=== PATIENT | female | born 1960 | race Caucasian/White ===

== ENCOUNTER 2017-04-13 14:08 | Emergency (ER) | payer MEDICAID ==
[~2017-04-13] VITALS: Ht 5367.7 cm; Wt 81.8 kg
[~2017-04-13 14:08] MED LIST: CHOL400T14 PO; HYDR-569 PO
[2017-04-13] MEDS ORDERED: DOXY-200 PO (16:54)
[2017-04-13] MEDS ORDERED: CEPH-572 PO (16:54)
[2017-04-13 17:23] VITALS: BP 139/100
== END 2017-04-13 17:26 | disposition home or self-care (01) ==
LOC: ER 14:09
DX: N61.0 Mastitis without abscess (principal); A49.02 Methicillin resistant Staphylococcus aureus infection, unspecified site; I10 Essential (primary) hypertension; E11.9 Type 2 diabetes mellitus without complications; M06.9 Rheumatoid arthritis, unspecified; Z90.49 Acquired absence of other specified parts of digestive tract; Z98.890 Other specified postprocedural states; Z98.51 Tubal ligation status; Z88.5 Allergy status to narcotic agent; Z88.6 Allergy status to analgesic agent; Z79.899 Other long term (current) drug therapy
CPT/HCPCS: 99283

== ENCOUNTER 2017-06-08 16:37 | Emergency (ER) | payer MEDICAID ==
[~2017-06-08] VITALS: Ht 162.6 cm; Wt 80.1 kg
[2017-06-08] MEDS ORDERED: diazepam 5mg tablet PO ONE (17:50)
[2017-06-08] MEDS ORDERED: METH-360 PO (17:51)
[2017-06-08 18:21] VITALS: BP 165/91
== END 2017-06-08 18:22 | disposition home or self-care (01) ==
LOC: ER 16:38
DX: M25.511 Pain in right shoulder (principal); I10 Essential (primary) hypertension; E11.9 Type 2 diabetes mellitus without complications; M06.9 Rheumatoid arthritis, unspecified; Z86.14 Personal history of Methicillin resistant Staphylococcus aureus infection; Z90.49 Acquired absence of other specified parts of digestive tract; Z98.890 Other specified postprocedural states; Z88.5 Allergy status to narcotic agent; Z88.8 Allergy status to other drugs, medicaments and biological substances; Z79.899 Other long term (current) drug therapy
CPT/HCPCS: 99283; L3650

== ENCOUNTER 2017-11-27 06:47 | Inpatient (IN) | payer MEDICAID ==
[2017-11-26 15:17] LABS: BASOPHILS # (AUTO) 0.1 X10'3 (0-0.2); BASOPHILS % (AUTO) 0.7 % (0-1); EOSINOPHILS # (AUTO) 0.1 X10'3 (0-0.9); EOSINOPHILS % (AUTO) 1.6 % (0-6); LYMPHOCYTES % (AUTO) 36.7 % (21-51); MEAN CORPUSCULAR HEMOGLOBIN 28.7 PG (27.0-31.0); MEAN CORPUSCULAR HGB CONC 33.4 % (33.0-36.5); MEAN PLATELET VOLUME 8.7 FL (7.4-10.4); MONOCYTES # (AUTO) 0.5 X10'3 (0-0.9); MONOCYTES % (AUTO) 5.6 % (2-12); NEUTROPHILS # (AUTO) 4.4 X10'3 (1.8-7.7); NEUTROPHILS % (AUTO) 55.4 % (42-75); PRE OP HEMATOCRIT 43.7 % (35.0-45.0); PRE OP HEMOGLOBIN 14.6 g/dL (12.0-16.0); PRE OP PLATELET COUNT 234 X10'3 (140-440); RED BLOOD COUNT 5.08 X10'6 (4.20-5.60); RED CELL DISTRIBUTION WIDTH 11.8 % (11.5-14.5)
[2017-11-26 15:25] LABS: PRE OP PROTIME 10.4 SECONDS (9.0-12.0)
[2017-11-26 15:30] LABS: ALBUMIN 3.9 G/DL (3.4-5.0); ALBUMIN/GLOBULIN RATIO 0.9 (1.1-1.5); ALKALINE PHOSPHATASE 113 IU/L (46-116); BLOOD UREA NITROGEN 13 MG/DL (7-18); BUN/CREATININE RATIO 21.3 (6.6-38.0); CALCIUM 9.9 MG/DL (8.5-10.1); CHLORIDE 102 MMOL/L (99-107); CREATININE 0.61 MG/DL (0.40-0.90); PRE OP ANION GAP 4 (8-16); PRE OP AST 70 U/L (10-37); PRE OP BILIRUB, TOTAL 0.5 MG/DL (0.0-1.0); PRE OP GLUCOSE 73 MG/DL (70-104); PRE OP POTASSIUM 4.1 MMOL/L (3.4-5.1); PRE OP SODIUM 137 MMOL/L (135-145); TOTAL CARBON DIOXIDE 31.4 MMOL/L (24-32); TOTAL PROTEIN 8.3 G/DL (6.4-8.2); eGFR > 90 ML/MIN
[2017-11-26 15:33] LABS: PRE OP ALT 93 U/L (30-65)
[2017-11-26 16:15] LABS: HEMOGLOBIN A1C 7.4 % (4.5-6.2)
[2017-11-27] VITALS (19 sets, daily range): BP systolic 104–157; BP diastolic 48–89
[~2017-11-27] VITALS: Ht 162.6 cm; Wt 78.9 kg
[~2017-11-27 06:47] MED LIST changes: -CHOL400T14 PO; +Cefazolin 2GM/50ML dext iso,osmotic IVPB IV ONE; +DOCUMENT DATE & TIME OF BETA-BLOCKER PO ONE; +GLYB5TAB7 PO; +HYDR-565 PO; -HYDR-569 PO; +METO-539 PO; +famotidine 20mg tablet PO ONE; +ringers solution, lacted 1,000 ML IV SCH; +vancomycin inj 1,500 MG in normal saline 300ml IV soln IV ONE
[2017-11-27] MEDS ORDERED: LIDOcaine 1% (10mg/ml) 2ml vial ONE (07:20)
[2017-11-27] MEDS ORDERED: ROPIVAcaine 0.5% (5mg/ml) 30ml vial ONE ×2 (09:03→09:52)
[2017-11-27] MEDS ORDERED: ketorolac trometh. 30mg/ml inj. ONE (09:52)
[2017-11-27] MEDS ORDERED: vancomycin 1,000mg inj ONE (09:52)
[2017-11-27] MEDS ORDERED: NORMAL SALINE IV ONE ×3 (09:55→16:00)
[2017-11-27] MEDS ORDERED: TRANEXAMIC ACID IV ONE ×3 (09:55→16:00)
[2017-11-27] MEDS ORDERED: sevoflurane 250ml liquid IH ONE (11:00)
[2017-11-27] MEDS ORDERED: ondansetron/PF 4mg/2ml inj ONE (11:00)
[2017-11-27] MEDS ORDERED: morphine 10mg/ml inj. ONE (11:14)
[2017-11-27] MEDS ORDERED: midazolam 2 mg/2 ml injection ONE (11:14)
[2017-11-27] MEDS ORDERED: dexamethasone sod phosphate 4mg/ml inj. ONE (11:16)
[2017-11-27] MEDS ORDERED: LIDOcaine 2% (20mg/ml) 5ml vial ONE (11:16)
[2017-11-27] MEDS ORDERED: propofol inj 20 ML IV ONE (11:16)
[2017-11-27] MEDS ORDERED: ringers solution, lacted 1,000 ML IV SCH (11:38)
[2017-11-27] MEDS ORDERED: meperidine/PF 25mg/ml syringe IV PRN ×2 (11:40)
[2017-11-27] MEDS ORDERED: enalaprilat dihydrate 2.5mg/2ml vial IV PRN (11:40)
[2017-11-27] MEDS ORDERED: hydrALAZINE 20mg/ml inj. IV PRN (11:40)
[2017-11-27] MEDS ORDERED: ondansetron/PF 4mg/2ml inj IV PRN ×2 (11:40→13:05)
[2017-11-27] MEDS ORDERED: morphine 4 MG/ML inj SYRINge IV PRN ×2 (11:40)
[2017-11-27] MEDS ORDERED: acetaminophen 325mg tablet PO PRN (13:05)
[2017-11-27] MEDS ORDERED: HYDROmorphone inj. 0.5 MG/0.5 ML DISP.SYRIN IV PRN ×2 (13:05)
[2017-11-27] MEDS ORDERED: oxyCODONE IR 5mg (immed. release) tablet PO PRN (13:05)
[2017-11-27] MEDS ORDERED: bisacodyl 10mg suppository rectal RC PRN (13:05)
[2017-11-27] MEDS ORDERED: diphenhydrAMINE 25mg capsule PO PRN ×2 (13:05)
[2017-11-27] MEDS ORDERED: magnesium hydroxide 30ml (MOM) UD suspension PO PRN (13:05)
[2017-11-27] MEDS: acetaminophen 325mg tablet PO SCH ×2 (14:00→20:20)
[2017-11-27] MEDS ORDERED: ketorolac tromethamine 15mg/ml inj. IV SCH (14:00)
[2017-11-27] MEDS ORDERED: ceFAZolin 1GM/D5W- ADD-VANTAGE 50 ML IV SCH (16:00)
[2017-11-27] MEDS: potassium cl 20mEq in 1/2 NS 1,000 ML IV SCH ×2 (16:25→23:02)
[2017-11-27] MEDS: ceFAZolin 1GM/D5W- ADD-VANTAGE 50 ML IV SCH (19:21)
[2017-11-27] MEDS: oxyCODONE IR 5mg (immed. release) tablet PO PRN (19:28)
[2017-11-27] MEDS ORDERED: vancomycin/NS 1 GM ADD-VANTAGE 250 ML IV SCH (20:00)
[2017-11-27] MEDS: gabapentin 300mg capsule PO SCH (20:20)
[2017-11-27] MEDS: sennosides 8.6mg tablet PO SCH (20:20)
[2017-11-28] MEDS: oxyCODONE IR 5mg (immed. release) tablet PO PRN ×2 (00:17→04:38)
[2017-11-28 02:00] VITALS: BP 123/61
[2017-11-28] MEDS: ceFAZolin 1GM/D5W- ADD-VANTAGE 50 ML IV SCH (02:04)
[2017-11-28] MEDS: acetaminophen 325mg tablet PO SCH ×4 (02:08→20:00)
[2017-11-28] MEDS: potassium cl 20mEq in 1/2 NS 1,000 ML IV SCH ×3 (05:01→21:01)
[2017-11-28 06:00] VITALS: BP 170/84
[2017-11-28 06:16] LABS: ANION GAP 9 (8-16); CHLORIDE 102 MMOL/L (99-107); POTASSIUM 4.1 MMOL/L (3.5-5.1); SODIUM 137 MMOL/L (135-145); TOTAL CARBON DIOXIDE 26.4 MMOL/L (24-32)
[2017-11-28 06:18] LABS: BASOPHILS % (AUTO) 0.2 % (0-1); EOSINOPHILS # (AUTO) 0.1 X10'3 (0-0.9); EOSINOPHILS % (AUTO) 0.9 % (0-6); HEMATOCRIT 34.2 % (35.0-45.0); HEMOGLOBIN 11.7 g/dl (12.0-16.0); LYMPHOCYTES # (AUTO) 1.5 X10'3 (1.1-4.8); LYMPHOCYTES % (AUTO) 12.1 % (21-51); MEAN CORPUSCULAR HEMOGLOBIN 29.5 PG (27.0-31.0); MEAN CORPUSCULAR HGB CONC 34.2 % (33.0-36.5); MEAN CORPUSCULAR VOLUME 86.2 FL (78-98); MEAN PLATELET VOLUME 8.9 FL (7.4-10.4); MONOCYTES # (AUTO) 0.4 X10'3 (0-0.9); MONOCYTES % (AUTO) 3.4 % (2-12); NEUTROPHILS # (AUTO) 10.1 X10'3 (1.8-7.7); NEUTROPHILS % (AUTO) 83.4 % (42-75); PLATELET COUNT 177 X10'3 (140-440); RED BLOOD COUNT 3.97 X10'6 (4.20-5.60); RED CELL DISTRIBUTION WIDTH 12.5 % (11.5-14.5); WHITE BLOOD COUNT 12.1 X10'3 (4.5-11.0)
[2017-11-28] MEDS: glimepiride 1 MG tablet PO SCH (07:46)
[2017-11-28] MEDS: gabapentin 300mg capsule PO SCH ×3 (07:47→20:31)
[2017-11-28] MEDS: metoprolol succinate 25mg (24-HOUR) SR. Tablet PO SCH (07:48)
[2017-11-28] MEDS: aspirin 325mg tablet PO SCH (07:48)
[2017-11-28] MEDS ORDERED: HYDROmorphone 1 mg/ml syringe IV PRN (08:45)
[2017-11-28] MEDS: HYDROmorphone 1 mg/ml syringe IV PRN ×3 (09:53→21:57)
[2017-11-28 10:00] VITALS: BP 112/57
[2017-11-28] MEDS: oxyCODONE/APAP 10/325mg tablet PO PRN ×3 (12:33→20:31)
[2017-11-28 14:00] VITALS: BP 142/58
[2017-11-28 18:01] VITALS: BP 130/77
[2017-11-28] MEDS: celeCOXIB 100mg capsule PO SCH (20:00)
[2017-11-28] MEDS: sennosides 8.6mg tablet PO SCH (20:31)
[2017-11-28 22:00] VITALS: BP 111/49
[2017-11-29] MEDS: oxyCODONE/APAP 10/325mg tablet PO PRN (00:41)
[2017-11-29] MEDS: HYDROmorphone 1 mg/ml syringe IV PRN (03:49)
[2017-11-29 05:00] VITALS: BP 130/55
[2017-11-29] MEDS: potassium cl 20mEq in 1/2 NS 1,000 ML IV SCH (05:01)
[2017-11-29 06:13] LABS: BASOPHILS # (AUTO) 0.1 X10'3 (0-0.2); BASOPHILS % (AUTO) 0.5 % (0-1); EOSINOPHILS # (AUTO) 0.2 X10'3 (0-0.9); EOSINOPHILS % (AUTO) 1.4 % (0-6); HEMATOCRIT 32.9 % (35.0-45.0); HEMOGLOBIN 11.1 g/dl (12.0-16.0); LYMPHOCYTES # (AUTO) 3.6 X10'3 (1.1-4.8); LYMPHOCYTES % (AUTO) 27.1 % (21-51); MEAN CORPUSCULAR HEMOGLOBIN 29.5 PG (27.0-31.0); MEAN CORPUSCULAR HGB CONC 33.8 % (33.0-36.5); MEAN CORPUSCULAR VOLUME 87.2 FL (78-98); MEAN PLATELET VOLUME 8.7 FL (7.4-10.4); MONOCYTES # (AUTO) 0.8 X10'3 (0-0.9); NEUTROPHILS # (AUTO) 8.6 X10'3 (1.8-7.7); PLATELET COUNT 182 X10'3 (140-440); RED BLOOD COUNT 3.77 X10'6 (4.20-5.60); RED CELL DISTRIBUTION WIDTH 12.7 % (11.5-14.5); WHITE BLOOD COUNT 13.2 X10'3 (4.5-11.0)
[2017-11-29] MEDS ORDERED: PER10325T PO (06:33)
[2017-11-29] MEDS ORDERED: ASPI-1 PO (06:33)
[2017-11-29] MEDS: celeCOXIB 100mg capsule PO SCH (07:50)
[2017-11-29] MEDS: gabapentin 300mg capsule PO SCH (07:50)
[2017-11-29] MEDS: glimepiride 1 MG tablet PO SCH (07:50)
[2017-11-29] MEDS: aspirin 325mg tablet PO SCH (07:51)
[2017-11-29] MEDS: metoprolol succinate 25mg (24-HOUR) SR. Tablet PO SCH (08:00)
[2017-11-29] MEDS ORDERED: OXYC-658 PO (08:02)
[2017-11-29] MEDS ORDERED: oxyCODONE IR 5mg (immed. release) tablet PO PRN ×3 (08:05→09:00)
[2017-11-29 10:00] VITALS: BP 141/100
[2017-11-29] MEDS ORDERED: acetaminophen 325mg tablet PO PRN (13:05)
== END 2017-11-29 10:50 | disposition home or self-care (01) | DRG 322 ==
LOC: PAS IN 06:47 → EDSTATUS 10:00 → ORTHO 4S 14:15
PROVIDERS: ADMIT Orthopaedic Surgery; ATTEND Orthopaedic Surgery
PROC: 0LS30ZZ Reposition Right Upper Arm Tendon, Open Approach (ICD-10-PCS; 2017-11-27)
PROC: 0RRJ0JZ Replacement of Right Shoulder Joint with Synthetic Substitute, Open Approach (ICD-10-PCS; principal; 2017-11-27 10:45)
DX: M19.011 Primary osteoarthritis, right shoulder (principal); D62 Acute posthemorrhagic anemia; E11.9 Type 2 diabetes mellitus without complications; G89.29 Other chronic pain; M65.811 Other synovitis and tenosynovitis, right shoulder; I25.10 Atherosclerotic heart disease of native coronary artery without angina pectoris; I25.2 Old myocardial infarction; Z86.718 Personal history of other venous thrombosis and embolism; Z91.030 Bee allergy status; Z88.5 Allergy status to narcotic agent; Z88.8 Allergy status to other drugs, medicaments and biological substances
CPT/HCPCS: 36415; 80051; 80053; 82948; 83036; 85025; 85610; 85730; 87070; 97110; 97116; 97161; A4565; A6209; A7000; C1713; C1776; J0690; J1100; J1170; J1885; J2001; J2250; J2270; J2405; J2704; J2795; J3370; J3490; J7030; J7040; J7120

== ENCOUNTER 2018-07-10 10:37 | Emergency (ER) | payer MEDICAID ==
[~2018-07-10] VITALS: Ht 162.6 cm; Wt 79.5 kg
[~2018-07-10 10:37] MED LIST changes: -Cefazolin 2GM/50ML dext iso,osmotic IVPB IV ONE; -DOCUMENT DATE & TIME OF BETA-BLOCKER PO ONE; +DOXY-224 PO; +HYDR-4353 PO; -HYDR-565 PO; +LACT1CAP26 PO; +OXYC5CAP19 PO; -famotidine 20mg tablet PO ONE; -ringers solution, lacted 1,000 ML IV SCH; -vancomycin inj 1,500 MG in normal saline 300ml IV soln IV ONE
[2018-07-10 11:18] LABS: BASOPHILS # (AUTO) 0.1 X10'3 (0-0.2); BASOPHILS % (AUTO) 1.2 % (0-1); EOSINOPHILS # (AUTO) 0.3 X10'3 (0-0.9); EOSINOPHILS % (AUTO) 4.2 % (0-6); HEMATOCRIT 40.9 % (35.0-45.0); LYMPHOCYTES # (AUTO) 2.8 X10'3 (1.1-4.8); LYMPHOCYTES % (AUTO) 38.7 % (21-51); MEAN CORPUSCULAR HEMOGLOBIN 28.3 PG (27.0-31.0); MEAN CORPUSCULAR HGB CONC 34.3 g/dL (33.0-36.5); MEAN CORPUSCULAR VOLUME 82.6 FL (78-98); MEAN PLATELET VOLUME 8.6 FL (7.4-10.4); MONOCYTES # (AUTO) 0.6 X10'3 (0-0.9); MONOCYTES % (AUTO) 8.1 % (2-12); NEUTROPHILS # (AUTO) 3.5 X10'3 (1.8-7.7); NEUTROPHILS % (AUTO) 47.8 % (42-75); PLATELET COUNT 212 X10'3 (140-440); RED BLOOD COUNT 4.95 X10'6 (4.20-5.60); RED CELL DISTRIBUTION WIDTH 12.8 % (11.5-14.5); WHITE BLOOD COUNT 7.3 X10'3 (4.5-11.0)
[2018-07-10 11:22] LABS: CLARITY,URINE CLOUDY (Clear); COLOR,URINE YELLOW (Yellow); GLUCOSE, URINE NEGATIVE (Neg); KETONES,URINE TRACE mg/dl (Neg); LEUKOCYTE ESTERASE ,URINE TRACE (Neg); NITRITES, URINE NEGATIVE (Neg); OCCULT BLOOD,URINE NEGATIVE (Neg); PROTEIN,URINE TRACE mg/dl (Neg); UROBILINOGEN,URINE 0.2 E.U/dL (0.2-1.0)
[2018-07-10 11:25] LABS: PROTHROMBIN TIME 10.1 SECONDS (9.0-12.0)
[2018-07-10 11:36] LABS: ALANINE AMINOTRANSFERASE 59 U/L (12-78); ALBUMIN 3.8 G/DL (3.4-5.0); ALBUMIN/GLOBULIN RATIO 0.9 (1.1-1.5); ALKALINE PHOSPHATASE 120 IU/L (46-116); ANION GAP 8 (8-16); ASPARTATE AMINO TRANSFERASE 48 U/L (10-37); BILIRUBIN,TOTAL 0.4 MG/DL (0.1-1.0); BLOOD UREA NITROGEN 11 MG/DL (7-18); BUN/CREATININE RATIO 15.5 (6.6-38.0); CALCIUM 9.7 MG/DL (8.5-10.1); CHLORIDE 106 MMOL/L (99-107); CREATININE 0.71 MG/DL (0.40-0.90); GLUCOSE 134 MG/DL (70-104); POTASSIUM 4.1 MMOL/L (3.5-5.1); SODIUM 142 MMOL/L (135-145); TOTAL CARBON DIOXIDE 27.8 MMOL/L (24-32); eGFR 85 ML/MIN
[2018-07-10 11:52] LABS: UA COLLECTION TYPE CLN CATCH MIDSTREAM
[2018-07-10 11:56] LABS: BACTERIA,URINE 2+ /HPF (Neg); MUCUS STRANDS FEW /LPF (Neg); RBC,URINE 0-2 /HPF (0-2); SQUAMOUS EPITHELIAL CELL,UR MANY /LPF (FEW)
[2018-07-10 11:58] LABS: TRANSITIONAL EPI CELLS,URINE FEW /HPF
[2018-07-10 11:59] LABS: HYALINE CASTS 0-3 /LPF (NEGATIVE)
[2018-07-10] MEDS ORDERED: morphine 4 MG/ML inj SYRINge IV ONE (12:20)
[2018-07-10] MEDS ORDERED: normal saline 1000ML IV soln IVB ONE (12:20)
[2018-07-10] MEDS ORDERED: ondansetron/PF 4mg/2ml inj IV ONE (12:20)
--- NOTE | 2018-07-10 13:12 | NUR ---
ASSISTING RN WITH PT CARE, STARTED IV ON 1ST ATTEMPT TO LEFT AC, 1ST LITER NS INFUSING W/O
[2018-07-10 14:03] VITALS: BP 126/53
[2018-07-10] MEDS ORDERED: SULF1TAB49 PO (14:22)
[2018-07-10] MEDS ORDERED: HYDROcodone/acetaminophen 10/325mg tab PO ONE (14:30)
== END 2018-07-10 14:48 | disposition home or self-care (01) ==
LOC: ER 10:38
DX: N39.0 Urinary tract infection, site not specified (principal); I10 Essential (primary) hypertension; I25.10 Atherosclerotic heart disease of native coronary artery without angina pectoris; I25.2 Old myocardial infarction; E11.9 Type 2 diabetes mellitus without complications; M19.90 Unspecified osteoarthritis, unspecified site; Z90.49 Acquired absence of other specified parts of digestive tract; Z98.51 Tubal ligation status; Z88.6 Allergy status to analgesic agent; Z88.8 Allergy status to other drugs, medicaments and biological substances
CPT/HCPCS: 36415; 74176; 80053; 81001; 85025; 85610; 96361; 96374; 96375; 99284; J2270; J2405; J7030

== ENCOUNTER 2018-08-12 09:48 | Inpatient (IN) | payer MEDICAID ==
[~2018-08-12] VITALS: Ht 162.6 cm; Wt 77.3 kg
[2018-08-12] MEDS ORDERED: metoprolol tartrate 1mg/ml inj IV ONE (10:00)
[2018-08-12] MEDS ORDERED: ondansetron/PF 4mg/2ml inj IV ONE (10:00)
[2018-08-12] MEDS ORDERED: normal saline 1000ML IV soln IVB ONE (10:00)
[2018-08-12] MEDS ORDERED: morphine 4 MG/ML inj SYRINge IV PRN (10:00)
[2018-08-12] MEDS ORDERED: aspirin 81mg tab.chew PO ONE (10:00)
[2018-08-12] MEDS: nitroGLYCERIN 0.4mg SUBLingual tab SL PRN (10:33)
--- NOTE | 2018-08-12 10:33 | NUR ---
Pt states no change in pain level with nitro administration, complains of headache.
[2018-08-12 11:00] LABS: BASOPHILS # (AUTO) 0.1 X10'3 (0-0.2); BASOPHILS % (AUTO) 0.8 % (0-1); EOSINOPHILS # (AUTO) 0.3 X10'3 (0-0.9); EOSINOPHILS % (AUTO) 3.4 % (0-6); HEMATOCRIT 37.2 % (35.0-45.0); HEMOGLOBIN 12.5 g/dl (12.0-16.0); LYMPHOCYTES # (AUTO) 3.2 X10'3 (1.1-4.8); LYMPHOCYTES % (AUTO) 40.3 % (21-51); MEAN CORPUSCULAR HEMOGLOBIN 27.9 PG (27.0-31.0); MEAN CORPUSCULAR HGB CONC 33.6 g/dL (33.0-36.5); MEAN CORPUSCULAR VOLUME 82.8 FL (78-98); MEAN PLATELET VOLUME 8.4 FL (7.4-10.4); MONOCYTES # (AUTO) 0.6 X10'3 (0-0.9); MONOCYTES % (AUTO) 7.2 % (2-12); NEUTROPHILS # (AUTO) 3.9 X10'3 (1.8-7.7); NEUTROPHILS % (AUTO) 48.3 % (42-75); PLATELET COUNT 195 X10'3 (140-440); RED BLOOD COUNT 4.49 X10'6 (4.20-5.60); RED CELL DISTRIBUTION WIDTH 13.1 % (11.5-14.5); WHITE BLOOD COUNT 8.1 X10'3 (4.5-11.0)
[2018-08-12 11:12] LABS: ALANINE AMINOTRANSFERASE 57 U/L (12-78); ALBUMIN 3.4 G/DL (3.4-5.0); ALBUMIN/GLOBULIN RATIO 0.9 (1.1-1.5); ALKALINE PHOSPHATASE 99 IU/L (46-116); ANION GAP 8 (8-16); ASPARTATE AMINO TRANSFERASE 46 U/L (10-37); BILIRUBIN,TOTAL 0.4 MG/DL (0.1-1.0); BLOOD UREA NITROGEN 14 MG/DL (7-18); BUN/CREATININE RATIO 24.1 (6.6-38.0); CALCIUM 9.3 MG/DL (8.5-10.1); CHLORIDE 107 MMOL/L (99-107); CREATININE 0.58 MG/DL (0.40-0.90); GLUCOSE 120 MG/DL (70-104); POTASSIUM 3.9 MMOL/L (3.5-5.1); SODIUM 141 MMOL/L (135-145); TOTAL CARBON DIOXIDE 26.3 MMOL/L (24-32); TOTAL PROTEIN 7.1 G/DL (6.4-8.2); eGFR > 90 ML/MIN
[2018-08-12] MEDS ORDERED: morphine 4 MG/ML inj SYRINge IV ONE (11:15)
[2018-08-12] MEDS ORDERED: proCHLORperazine 10 MG/2 ml inj IV ONE (11:15)
[2018-08-12] MEDS ORDERED: magnesium hydroxide 30ml (MOM) UD suspension PO PRN (12:10)
[2018-08-12] MEDS ORDERED: acetaminophen 325mg tablet PO PRN (12:10)
[2018-08-12] MEDS ORDERED: ondansetron/PF 4mg/2ml inj IV PRN (12:10)
[2018-08-12] MEDS ORDERED: metoprolol tartrate 1mg/ml inj IV PRN (12:10)
[2018-08-12] MEDS ORDERED: mag hydrox/Alum hydrox/simeth 30ml oral suspension PO PRN (12:10)
[2018-08-12] MEDS ORDERED: regadenoson 0.4mg/5ml syringe IV PRN (12:10)
[2018-08-12] MEDS ORDERED: aminophylline 250mg/10ml inj. IV PRN (12:10)
[2018-08-12] MEDS ORDERED: nitroGLYCERIN 0.4mg SUBLingual tab SL PRN (12:10)
[2018-08-12] MEDS ORDERED: morphine 2 MG/ML inj. syringe IV PRN ×2 (12:10)
--- NOTE | 2018-08-12 12:28 | NUR ---
NUCLEAR MED CALLED TO LATE TO DO THE KATERYNA SCAN TODAY. WILL DO IN AM. NPO AFTER MN.
--- NOTE | 2018-08-12 12:30 | NUR ---
Ronnie del real in [facility] - 08/12/18 at 1231 by LU NUCLEAR MED WAITING FOR TROPONIN, WILL DO IN AM
--- NOTE | 2018-08-12 12:31 | NUR ---
NUCLEAR MED WAITING FOR TROPONIN, WILL DO KATERYNA SCAN IN AM
[2018-08-12] MEDS ORDERED: MULT-933 PO (12:57)
[2018-08-12] MEDS ORDERED: METO25TA6 PO (12:59)
--- NOTE | 2018-08-12 13:35 | NUR ---
Pt transported to U room 3027A from ED via [facility]. Pt ambulated independently off of [facility] in to bed without difficulty. Vital signs obtained, call light placed within reach, pt oriented to room. Tele monitor applied, pt placed in hospital gown. Dr. Calles at bedside. Will continue to closely monitor. Addendum: 08/12/18 at 1507 by Shannon Elam RN Time incorrect. Pt arrived to U room 302 at 1435.
[2018-08-12 14:41] LABS: CLARITY,URINE SLIGHTLY CLOUDY (Clear); COLOR,URINE STRAW (Yellow); GLUCOSE, URINE NEGATIVE (Neg); KETONES,URINE NEGATIVE (Neg); LEUKOCYTE ESTERASE ,URINE NEGATIVE (Neg); NITRITES, URINE NEGATIVE (Neg); OCCULT BLOOD,URINE NEGATIVE (Neg); PH,URINE 5.5 (4.8-8.0); PROTEIN,URINE NEGATIVE (Neg); UROBILINOGEN,URINE 0.2 E.U/dL (0.2-1.0)
[2018-08-12 14:42] LABS: UA COLLECTION TYPE CLN CATCH MIDSTREAM
[2018-08-12 14:45] VITALS: BP 138/56
[2018-08-12 14:55] LABS: HYALINE CASTS 0-3 /LPF (NEGATIVE); MUCUS STRANDS MODERATE /LPF (Neg); SQUAMOUS EPITHELIAL CELL,UR MODERATE /LPF (FEW); TRANSITIONAL EPI CELLS,URINE FEW /HPF
[2018-08-12 14:56] LABS: WBC,URINE 0-4 /HPF (0-4)
[2018-08-12 14:57] LABS: BACTERIA,URINE FEW /HPF (Neg); RBC,URINE NONE SEEN /HPF (0-2)
[2018-08-12 15:00] VITALS: BP 137/56
[2018-08-12 15:00] LABS: CAL OXALATE CRYSTALS 2+ /HPF (NEGATIVE)
[2018-08-12] MEDS: normal saline 1000ml 1,000 ML IV SCH ×2 (16:32→23:45)
[2018-08-12 18:00] VITALS: BP 147/54
--- NOTE | 2018-08-12 18:30 | NUR ---
Patient in room PCU 3027. I have received report from Maral New and had the opportunity to ask questions and assume patient care.
--- NOTE | 2018-08-12 18:32 | NUR ---
Problems reprioritized. Patient report given, questions answered & plan of care reviewed with ZARI Esparza.
[2018-08-12] MEDS: metoprolol tartrate 50mg tablet PO SCH (19:23)
[2018-08-12] MEDS: HYDROcodone/acetaminophen 10/325mg tab PO PRN (19:24)
[2018-08-12] MEDS: heparin, porcine 5000 units/ml vial SQ SCH (19:50)
[2018-08-12 22:00] VITALS: BP 113/52
[2018-08-13] VITALS (19 sets, daily range): BP systolic 111–166; BP diastolic 47–86
[2018-08-13] MEDS: HYDROcodone/acetaminophen 10/325mg tab PO PRN ×4 (01:24→21:59)
--- NOTE | 2018-08-13 05:35 | NUR ---
pt pulled out her IV when getting up to bathroom.
--- NOTE | 2018-08-13 05:36 | NUR ---
pt noted to be bradycardic most of the night. she stated she has been tired a lot more than usual lately.
--- NOTE | 2018-08-13 05:46 | NUR ---
tried to start new IV, pt having chest pain at first poke
[2018-08-13] MEDS: nitroGLYCERIN 0.4mg SUBLingual tab SL PRN ×2 (05:49→06:24)
--- NOTE | 2018-08-13 05:57 | NUR ---
chest pain started around 8 or 9/10, down to 7/10. pt refused further nitro, stated it makes her head hurt.
--- NOTE | 2018-08-13 06:25 | NUR ---
Problems reprioritized. Patient report given, questions answered & plan of care reviewed with cuate New.
--- NOTE | 2018-08-13 06:25 | NUR ---
still cp 10/23, agreed to another [place] [facility].
--- NOTE | 2018-08-13 06:35 | NUR ---
Patient in room PCU 3027. I have received report from Vilma HAMEED and had the opportunity to ask questions and assume patient care. Patient c/o chest pain, shift superintendent caustic cresylate aware, ekg was obtained and read before transfer of care, nitro has been given x2 and patient states cp is lessening. Will continue to monitor.
[2018-08-13] MEDS: aspirin 81mg tablet.DR PO SCH (07:58)
[2018-08-13] MEDS: atorvastatin 20mg tablet PO SCH (07:58)
[2018-08-13] MEDS: metoprolol tartrate 50mg tablet PO SCH (08:00)
[2018-08-13] MEDS: heparin, porcine 5000 units/ml vial SQ SCH (08:00)
[2018-08-13] MEDS: normal saline 1000ml 1,000 ML IV SCH ×2 (08:06→18:08)
[2018-08-13] MEDS ORDERED: regadenoson 0.4mg/5ml syringe IV ONE (09:19)
[2018-08-13] MEDS ORDERED: aminophylline inj. 10 ML IV ONE (09:19)
--- NOTE | 2018-08-13 11:03 | NUR ---
PAGER ID: [phone] MESSAGE: Sy [id number]. Keri report is posted, Pt would like to eat and no labs were ordered for today. Lauren [id number]
[2018-08-13 14:04] LABS: CHOL/HDL RATIO 4.3 (0.00-4.99); CHOLESTEROL 168 MG/DL (0-200); HDL CHOLESTEROL 39 MG/DL (35-60); LDL CHOLESTEROL 113 MG/DL (50-100); TRIGLYCERIDES 189 MG/DL (20-135)
[2018-08-13] MEDS ORDERED: LIDOcaine 1% (10mg/ml)w/preservative injection 20ml MDV ONE (14:28)
[2018-08-13] MEDS ORDERED: iohexol 350MG/ML 100ml bottle IV ONE (14:28)
[2018-08-13] MEDS ORDERED: fentaNYL/PF 50MCG/1 ML 2ML syringe ONE (14:47)
[2018-08-13] MEDS ORDERED: midazolam 2 mg/2 ml injection ONE (14:47)
[2018-08-13] MEDS ORDERED: proCHLORperazine 10 MG/2 ml inj ONE (14:47)
[2018-08-13] MEDS ORDERED: heparin 1,000unit/ml 10ml vial 10 ML ONE (15:02)
[2018-08-13] MEDS ORDERED: iohexol 350 MG/1 ML 200ml bottle ONE (15:03)
[2018-08-13] MEDS ORDERED: ticagrelor 90mg tablet ONE (15:03)
[2018-08-13] MEDS ORDERED: OXAZEpam 15mg capsule PO PRN (16:10)
[2018-08-13] MEDS ORDERED: proCHLORperazine 10 MG/2 ml inj IV PRN (16:10)
[2018-08-13] MEDS ORDERED: ondansetron/PF 4mg/2ml inj IV PRN (16:10)
[2018-08-13] MEDS ORDERED: HYDROcodone/acetaminophen 5mg/325mg tablet PO PRN (16:10)
--- NOTE | 2018-08-13 16:23 | NUR ---
PAGER ID: [phone] MESSAGE: Ayan Santillan. FYI patient has a positive MRSA nasal swab. [facility] [id number]
--- NOTE | 2018-08-13 18:10 | NUR ---
Patient in room PCU 3027. I have received report from Lauren Moon and had the opportunity to ask questions and assume patient care.
--- NOTE | 2018-08-13 18:14 | NUR ---
Problems reprioritized. Patient report given, questions answered & plan of care reviewed with Vilma HAMEED. Patient stable at transfer of care.
--- NOTE | 2018-08-13 18:30 | NUR ---
Patient in room PCU 3027. I have received report from Toby HAMEED and had the opportunity to ask questions and assume patient care WITH DIMITRIOS HAMEED.
[2018-08-13] MEDS: ticagrelor 90mg tablet PO SCH (19:17)
[2018-08-13] MEDS: metoprolol tartrate 12.5mg (1/2 tablet) PO SCH (19:17)
--- NOTE | 2018-08-13 23:45 | NUR ---
Malfunction with vitals machine. it erased all the post op vitals. only have 1800 and 2200 vitals.
--- NOTE | 2018-08-14 00:32 | NUR ---
moderate drainage to perclose dressing. drainage is slowing down. applied new gauze dressing. will continue to monitor.
[2018-08-14 02:00] VITALS: BP 128/52
[2018-08-14] MEDS: HYDROcodone/acetaminophen 10/325mg tab PO PRN (05:16)
[2018-08-14 05:51] LABS: eGFR > 90 ML/MIN
--- NOTE | 2018-08-14 06:00 | NUR ---
Patient in room PCU 3027. I have received report from Vilma HAMEED and had the opportunity to ask questions and assume patient care.
--- NOTE | 2018-08-14 06:07 | NUR ---
Problems reprioritized. Patient report given, questions answered & plan of care reviewed with Lauren Blanco
--- NOTE | 2018-08-14 06:10 | NUR ---
Problems reprioritized. Patient report given, questions answered & plan of care reviewed with KAREL HAMEED. ORIENTEE documentation: I have reviewed and agree with all interventions, assessments performed and documented by DIMITRIOS HAMEED.
[2018-08-14 07:00] VITALS: BP 142/77
[2018-08-14] MEDS: atorvastatin 20mg tablet PO SCH (07:41)
[2018-08-14] MEDS: ticagrelor 90mg tablet PO SCH (07:42)
[2018-08-14] MEDS: metoprolol tartrate 12.5mg (1/2 tablet) PO SCH (07:46)
[2018-08-14] MEDS: aspirin 81mg tablet.DR PO SCH (08:00)
[2018-08-14] MEDS ORDERED: ATOR20TA66 PO (09:34)
[2018-08-14] MEDS ORDERED: ASPI-1071 PO (09:34)
[2018-08-14] MEDS ORDERED: TICA90TA PO (09:34)
[2018-08-14 11:00] VITALS: BP 117/61
--- NOTE | 2018-08-14 13:15 | NUR ---
Patient discharged home at 1315. Discharge packet and patient education reviewed before signing and being sent home with patient. Patient also received angiogram/stent ID card, and medications that had been stored in the pharmacy. [facility] bedside delivered new Rx. PIV was removed with cannula intact, telemetry monitoring removed and all belongings sent with patient. Patient was wheeled down by staff and left via private vehicle with daughter.
== END 2018-08-14 13:15 | disposition home or self-care (01) | DRG 175 ==
LOC: ER 09:49 → PCU 3S 15:01 → CMPBEDREQ 19:49
PROVIDERS: ADMIT Family Medicine; ATTEND Family Medicine
PROC: 4A02XM4 Measurement of Cardiac Total Activity, External Approach (ICD-10-PCS; principal; 2018-08-13)
PROC: 027034Z Dilation of Coronary Artery, One Artery with Drug-eluting Intraluminal Device, Percutaneous Approach (ICD-10-PCS; 2018-08-13)
PROC: 4A023N7 Measurement of Cardiac Sampling and Pressure, Left Heart, Percutaneous Approach (ICD-10-PCS; 2018-08-13)
PROC: 3E033HZ Introduction of Radioactive Substance into Peripheral Vein, Percutaneous Approach (ICD-10-PCS; 2018-08-13)
PROC: B2111ZZ Fluoroscopy of Multiple Coronary Arteries using Low Osmolar Contrast (ICD-10-PCS; 2018-08-13)
PROC: B2151ZZ Fluoroscopy of Left Heart using Low Osmolar Contrast (ICD-10-PCS; 2018-08-13)
PROC: 02703ZZ Dilation of Coronary Artery, One Artery, Percutaneous Approach (ICD-10-PCS; 2018-08-13)
PROC: B41G1ZZ Fluoroscopy of Left Lower Extremity Arteries using Low Osmolar Contrast (ICD-10-PCS; 2018-08-13)
DX: I25.110 Atherosclerotic heart disease of native coronary artery with unstable angina pectoris (principal); E11.9 Type 2 diabetes mellitus without complications; I10 Essential (primary) hypertension; J44.9 Chronic obstructive pulmonary disease, unspecified; K80.20 Calculus of gallbladder without cholecystitis without obstruction; M06.9 Rheumatoid arthritis, unspecified; Z82.49 Family history of ischemic heart disease and other diseases of the circulatory system; Z86.73 Personal history of transient ischemic attack (TIA), and cerebral infarction without residual deficits; I25.2 Old myocardial infarction; Z88.5 Allergy status to narcotic agent; Z88.6 Allergy status to analgesic agent; Z91.030 Bee allergy status; Z90.49 Acquired absence of other specified parts of digestive tract; Z98.51 Tubal ligation status; Z80.8 Family history of malignant neoplasm of other organs or systems; Z79.899 Other long term (current) drug therapy; Z87.891 Personal history of nicotine dependence
CPT/HCPCS: 36415; 71045; 78452; 80053; 80061; 81001; 82565; 83880; 84484; 85025; 87070; 92920; 93005; 93017; 93306; 93458; 96361; 96374; 96375; 99152; 99153; 99285; A4620; A6257; A9500; C1725; C1760; C1769; C1874; C9600; G0378; J0280; J0780; J1644; J2001; J2250; J2270; J2405; J3010; J3490; J7030; Q9967

== ENCOUNTER 2018-12-06 23:47 | Emergency (ER) | payer MEDICAID ==
[~2018-12-06] VITALS: Ht 162.6 cm; Wt 77.3 kg
[~2018-12-06 23:47] MED LIST changes: +ASPI-1071 PO; +ATOR20TA66 PO; -DOXY-224 PO; -LACT1CAP26 PO; -METO-539 PO; +METO25TA6 PO; +MULT-933 PO; -OXYC5CAP19 PO; +TICA90TA PO
[2018-12-07 00:38] LABS: BASOPHILS % (AUTO) 0.5 % (0-1); EOSINOPHILS # (AUTO) 0.3 X10'3 (0-0.9); EOSINOPHILS % (AUTO) 4.3 % (0-6); HEMATOCRIT 38.7 % (35.0-45.0); HEMOGLOBIN 13.2 g/dl (12.0-16.0); LYMPHOCYTES # (AUTO) 2.5 X10'3 (1.1-4.8); LYMPHOCYTES % (AUTO) 37.4 % (21-51); MEAN CORPUSCULAR HGB CONC 34.2 g/dL (33.0-36.5); MEAN CORPUSCULAR VOLUME 84.7 FL (78-98); MONOCYTES # (AUTO) 0.5 X10'3 (0-0.9); MONOCYTES % (AUTO) 6.7 % (2-12); NEUTROPHILS # (AUTO) 3.5 X10'3 (1.8-7.7); NEUTROPHILS % (AUTO) 51.1 % (42-75); PLATELET COUNT 191 X10'3 (140-440); RED BLOOD COUNT 4.57 X10'6 (4.20-5.60); RED CELL DISTRIBUTION WIDTH 12.2 % (11.5-14.5); WHITE BLOOD COUNT 6.8 X10'3 (4.5-11.0)
[2018-12-07 00:40] LABS: ALANINE AMINOTRANSFERASE 44 U/L (12-78); ALBUMIN 3.9 G/DL (3.4-5.0); ALKALINE PHOSPHATASE 111 IU/L (46-116); ANION GAP 6 (8-16); ASPARTATE AMINO TRANSFERASE 39 U/L (10-37); BILIRUBIN,TOTAL 0.3 MG/DL (0.1-1.0); BLOOD UREA NITROGEN 20 MG/DL (7-18); BUN/CREATININE RATIO 25.3 (6.6-38.0); CALCIUM 9.9 MG/DL (8.5-10.1); CHLORIDE 107 MMOL/L (99-107); CREATININE 0.79 MG/DL (0.40-0.90); GLUCOSE 136 MG/DL (70-104); POTASSIUM 3.9 MMOL/L (3.5-5.1); SODIUM 143 MMOL/L (135-145); TOTAL CARBON DIOXIDE 29.7 MMOL/L (24-32); TOTAL PROTEIN 7.8 G/DL (6.4-8.2); eGFR 75 ML/MIN
[2018-12-07 00:44] LABS: PARTIAL THROMBOPLASTIN TIME 29 SECONDS (22-32)
[2018-12-07 01:56] LABS: D-DIMER 0.44 MG/L FEU (0-0.50)
[2018-12-07 02:14] VITALS: BP 144/78
== END 2018-12-07 02:27 | disposition left against medical advice (07) ==
LOC: ER 23:48
DX: R07.89 Other chest pain (principal); R06.02 Shortness of breath; R11.0 Nausea; I25.10 Atherosclerotic heart disease of native coronary artery without angina pectoris; I10 Essential (primary) hypertension; I25.2 Old myocardial infarction; E11.9 Type 2 diabetes mellitus without complications; M06.9 Rheumatoid arthritis, unspecified; Z86.69 Personal history of other diseases of the nervous system and sense organs; Z86.14 Personal history of Methicillin resistant Staphylococcus aureus infection; Z90.49 Acquired absence of other specified parts of digestive tract; Z98.51 Tubal ligation status; Z98.890 Other specified postprocedural states; Z88.6 Allergy status to analgesic agent; Z88.5 Allergy status to narcotic agent; Z88.8 Allergy status to other drugs, medicaments and biological substances; Z79.82 Long term (current) use of aspirin; Z79.899 Other long term (current) drug therapy
CPT/HCPCS: 36415; 71045; 80053; 84484; 85025; 85379; 85610; 85730; 93005; 99284

== ENCOUNTER 2018-12-29 16:15 | Emergency (ER) | payer MEDICAID ==
[~2018-12-29] VITALS: Ht 162.6 cm; Wt 72.7 kg
[2018-12-29 16:57] LABS: BASOPHILS # (AUTO) 0.1 X10'3 (0-0.2); BASOPHILS % (AUTO) 0.9 % (0-1); EOSINOPHILS # (AUTO) 0.2 X10'3 (0-0.9); HEMATOCRIT 40.4 % (35.0-45.0); HEMOGLOBIN 13.6 g/dl (12.0-16.0); LYMPHOCYTES % (AUTO) 26.8 % (21-51); MEAN CORPUSCULAR HEMOGLOBIN 28.6 PG (27.0-31.0); MEAN CORPUSCULAR HGB CONC 33.8 g/dL (33.0-36.5); MEAN CORPUSCULAR VOLUME 84.7 FL (78-98); MEAN PLATELET VOLUME 8.2 FL (7.4-10.4); MONOCYTES # (AUTO) 0.4 X10'3 (0-0.9); MONOCYTES % (AUTO) 5.8 % (2-12); NEUTROPHILS # (AUTO) 4.9 X10'3 (1.8-7.7); NEUTROPHILS % (AUTO) 64.5 % (42-75); PLATELET COUNT 205 X10'3 (140-440); RED BLOOD COUNT 4.77 X10'6 (4.20-5.60); RED CELL DISTRIBUTION WIDTH 12.6 % (11.5-14.5); WHITE BLOOD COUNT 7.5 X10'3 (4.5-11.0)
[2018-12-29 17:08] LABS: PARTIAL THROMBOPLASTIN TIME 28 SECONDS (22-32)
[2018-12-29 17:11] LABS: ALANINE AMINOTRANSFERASE 43 U/L (12-78); ALBUMIN 4.1 G/DL (3.4-5.0); ALKALINE PHOSPHATASE 85 IU/L (46-116); ANION GAP 8 (8-16); ASPARTATE AMINO TRANSFERASE 38 U/L (10-37); BILIRUBIN,TOTAL 0.5 MG/DL (0.1-1.0); BLOOD UREA NITROGEN 19 MG/DL (7-18); BUN/CREATININE RATIO 27.5 (6.6-38.0); CHLORIDE 106 MMOL/L (99-107); CREATININE 0.69 MG/DL (0.40-0.90); GLUCOSE 150 MG/DL (70-104); POTASSIUM 3.6 MMOL/L (3.5-5.1); SODIUM 144 MMOL/L (135-145); TOTAL CARBON DIOXIDE 29.8 MMOL/L (24-32); TOTAL PROTEIN 8.1 G/DL (6.4-8.2); eGFR 88 ML/MIN
[2018-12-29] MEDS ORDERED: ondansetron/PF 4mg/2ml inj IV ONE ×2 (17:15→19:10)
[2018-12-29] MEDS ORDERED: normal saline 1000ML IV soln IVB ONE (17:15)
[2018-12-29] MEDS: morphine 4 MG/ML inj SYRINge IV PRN ×2 (17:52→19:11)
--- NOTE | 2018-12-29 19:18 | NUR ---
DR GARCIA IN ROOM AND GOING OVER PLAN OF CARE: AWARE NO URINE OBTAINED: HE DOES NOT NEED UA PATIENT'S HAND TINGLING FOR 3 WEEKS
--- NOTE | 2018-12-29 19:20 | NUR ---
NO FOLLOW UP WITH HEAD WELL PULLER SINCE STENT PLACEMENT IN JULY 2018
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
--- NOTE | 2018-12-29 19:54 | NUR ---
SPOKE TO DR AGUDELO REGARDING PATIENT'S CHEST PAIN, ORDER FOR TORADOL
[2018-12-29] MEDS ORDERED: ketorolac trometh. 30mg/ml inj. IV ONE (19:55)
[2018-12-29 20:25] VITALS: BP 135/93
[2018-12-29] MEDS ORDERED: ONDA4TAB6 PO (20:32)
== END 2018-12-29 21:15 | disposition home or self-care (01) ==
LOC: ER 16:16
DX: R07.89 Other chest pain (principal); R42 Dizziness and giddiness; R20.2 Paresthesia of skin; I10 Essential (primary) hypertension; I25.10 Atherosclerotic heart disease of native coronary artery without angina pectoris; I25.2 Old myocardial infarction; E11.9 Type 2 diabetes mellitus without complications; M19.90 Unspecified osteoarthritis, unspecified site; Z90.49 Acquired absence of other specified parts of digestive tract; Z98.51 Tubal ligation status; Z88.6 Allergy status to analgesic agent; Z79.82 Long term (current) use of aspirin; Z79.899 Other long term (current) drug therapy
CPT/HCPCS: 36415; 71045; 80053; 83735; 83880; 84484; 85025; 85610; 85730; 93005; 96361; 96374; 96375; 96376; 99284; J1885; J2270; J2405; J7030

== ENCOUNTER 2019-04-16 16:11 | Emergency (ER) | payer MEDICAID ==
[~2019-04-16] VITALS: Ht 162.6 cm; Wt 72.6 kg
[~2019-04-16 16:11] MED LIST changes: +ONDA4TAB6 PO
--- NOTE | 2019-04-16 16:19 | NUR ---
to xray from triage
--- NOTE | 2019-04-16 16:32 | NUR ---
Patient went from xray to CT.
--- NOTE | 2019-04-16 17:17 | NUR ---
Patient going to Xray for Right Hip pain
[2019-04-16] MEDS ORDERED: acetaminophen 325mg tablet PO ONE (17:20)
--- NOTE | 2019-04-16 17:23 | NUR ---
Patient back in bed. Dressed in gown for visual assessment of painful sites. Addendum: 04/16/19 at 1724 by [email or web address] No visual bruising on right shoulder, right hip, right knee, or head.
[2019-04-16] MEDS ORDERED: HYDROcodone/acetaminophen 10/325mg tab PO ONE (18:20)
[2019-04-16 18:49] VITALS: BP 151/94
== END 2019-04-16 18:55 | disposition home or self-care (01) ==
LOC: ER 16:12
DX: M25.511 Pain in right shoulder (principal); M25.551 Pain in right hip; M25.561 Pain in right knee; I25.10 Atherosclerotic heart disease of native coronary artery without angina pectoris; I10 Essential (primary) hypertension; I25.2 Old myocardial infarction; E11.9 Type 2 diabetes mellitus without complications; M06.9 Rheumatoid arthritis, unspecified; Z86.14 Personal history of Methicillin resistant Staphylococcus aureus infection; Z90.49 Acquired absence of other specified parts of digestive tract; Z98.890 Other specified postprocedural states; Z98.51 Tubal ligation status; Z86.69 Personal history of other diseases of the nervous system and sense organs; Z88.5 Allergy status to narcotic agent; Z79.82 Long term (current) use of aspirin; Z79.899 Other long term (current) drug therapy; W01.0XXA Fall on same level from slipping, tripping and stumbling without subsequent striking against object, initial encounter; Y93.89 Activity, other specified; Y92.89 Other specified places as the place of occurrence of the external cause; Y99.8 Other external cause status
CPT/HCPCS: 70450; 73030; 73502; 73560; 99284

== ENCOUNTER 2019-07-11 15:44 | Emergency (ER) | payer MEDICAID ==
[~2019-07-11] VITALS: Ht 162.6 cm; Wt 78.0 kg
[2019-07-11 16:12] LABS: BASOPHILS # (AUTO) 0.1 X10'3 (0-0.2); BASOPHILS % (AUTO) 0.8 % (0-1); EOSINOPHILS # (AUTO) 0.2 X10'3 (0-0.9); EOSINOPHILS % (AUTO) 2.8 % (0-6); HEMOGLOBIN 12.9 g/dl (12.0-16.0); LYMPHOCYTES % (AUTO) 43.5 % (21-51); MEAN CORPUSCULAR HEMOGLOBIN 28.9 PG (27.0-31.0); MEAN CORPUSCULAR HGB CONC 33.9 g/dL (33.0-36.5); MEAN CORPUSCULAR VOLUME 85.4 FL (78-98); MEAN PLATELET VOLUME 8.2 FL (7.4-10.4); MONOCYTES # (AUTO) 0.5 X10'3 (0-0.9); MONOCYTES % (AUTO) 6.8 % (2-12); NEUTROPHILS # (AUTO) 3.2 X10'3 (1.8-7.7); NEUTROPHILS % (AUTO) 46.1 % (42-75); PLATELET COUNT 190 X10'3 (140-440); RED BLOOD COUNT 4.45 X10'6 (4.20-5.60); WHITE BLOOD COUNT 6.9 X10'3 (4.5-11.0)
[2019-07-11] MEDS ORDERED: morphine 4 MG/ML inj SYRINge IV ONE (16:15)
[2019-07-11] MEDS ORDERED: normal saline 1000ml 1,000 ML IV ONE (16:15)
[2019-07-11] MEDS ORDERED: ondansetron/PF 4mg/2ml inj IV ONE (16:15)
[2019-07-11 16:30] LABS: ALANINE AMINOTRANSFERASE 47 U/L (12-78); ALBUMIN 3.8 G/DL (3.4-5.0); ALKALINE PHOSPHATASE 105 IU/L (46-116); AMYLASE 64 U/L (25-115); ANION GAP 5 (8-16); ASPARTATE AMINO TRANSFERASE 39 U/L (10-37); BILIRUBIN,TOTAL 0.5 MG/DL (0.1-1.0); BLOOD UREA NITROGEN 15 MG/DL (7-18); BUN/CREATININE RATIO 22.1 (6.6-38.0); CALCIUM 9.9 MG/DL (8.5-10.1); CHLORIDE 106 MMOL/L (99-107); CREATININE 0.68 MG/DL (0.40-0.90); GLUCOSE 133 MG/DL (70-104); LIPASE 193 U/L (73-393); SODIUM 142 MMOL/L (135-145); TOTAL CARBON DIOXIDE 31.4 MMOL/L (24-32); TOTAL PROTEIN 7.7 G/DL (6.4-8.2); eGFR 90 ML/MIN
--- NOTE | 2019-07-11 16:41 | NUR ---
Pt transported to CT via wheelchair with tech.
[2019-07-11 18:14] LABS: CLARITY,URINE CLEAR (Clear); COLOR,URINE YELLOW (Yellow); GLUCOSE, URINE NEGATIVE (Neg); KETONES,URINE NEGATIVE (Neg); LEUKOCYTE ESTERASE ,URINE TRACE (Neg); NITRITES, URINE NEGATIVE (Neg); OCCULT BLOOD,URINE NEGATIVE (Neg); PROTEIN,URINE NEGATIVE (Neg); UROBILINOGEN,URINE 0.2 E.U/dL (0.2-1.0)
[2019-07-11 18:23] LABS: UA COLLECTION TYPE CLN CATCH MIDSTREAM
[2019-07-11 18:24] LABS: BACTERIA,URINE FEW /HPF (Neg); RBC,URINE NONE SEEN /HPF (0-2); SQUAMOUS EPITHELIAL CELL,UR FEW /LPF (FEW); WBC,URINE 0-4 /HPF (0-4)
[2019-07-11] MEDS ORDERED: CEPH250T PO (19:11)
[2019-07-11] MEDS ORDERED: HYDROcodone/acetaminophen 5mg/325mg tablet PO ONE (19:25)
[2019-07-11] MEDS ORDERED: ondansetron 4mg rapidly disintigrating tab PO ONE (19:25)
[2019-07-11 19:32] VITALS: BP 131/79
== END 2019-07-11 19:34 | disposition home or self-care (01) ==
LOC: ER 15:46
DX: N39.0 Urinary tract infection, site not specified (principal); R10.31 Right lower quadrant pain; I25.10 Atherosclerotic heart disease of native coronary artery without angina pectoris; I10 Essential (primary) hypertension; I25.2 Old myocardial infarction; E11.9 Type 2 diabetes mellitus without complications; Z86.69 Personal history of other diseases of the nervous system and sense organs; Z86.14 Personal history of Methicillin resistant Staphylococcus aureus infection; Z90.49 Acquired absence of other specified parts of digestive tract; Z98.51 Tubal ligation status; Z98.890 Other specified postprocedural states; Z88.5 Allergy status to narcotic agent; Z79.82 Long term (current) use of aspirin; Z79.899 Other long term (current) drug therapy
CPT/HCPCS: 36415; 74176; 80053; 81001; 82150; 83690; 85025; 87088; 96374; 96375; 99284; J2270; J2405; J7030

== ENCOUNTER 2019-10-09 02:22 | Emergency (ER) | payer MEDICAID ==
[~2019-10-09] VITALS: Ht 170.2 cm; Wt 81.8 kg
--- NOTE | 2019-10-09 02:30 | NUR ---
Arrived for a level 1 stroke alert, patient complains of chest pain and not feeling good starting at about 0200.
[2019-10-09 02:52] LABS: BASOPHILS % (AUTO) 0.7 % (0-1); EOSINOPHILS # (AUTO) 0.3 X10'3 (0-0.9); EOSINOPHILS % (AUTO) 3.5 % (0-6); HEMATOCRIT 37.2 % (35.0-45.0); HEMOGLOBIN 12.5 g/dl (12.0-16.0); LYMPHOCYTES # (AUTO) 3.6 X10'3 (1.1-4.8); LYMPHOCYTES % (AUTO) 49.3 % (21-51); MEAN CORPUSCULAR HEMOGLOBIN 28.7 PG (27.0-31.0); MEAN CORPUSCULAR HGB CONC 33.5 g/dL (33.0-36.5); MEAN CORPUSCULAR VOLUME 85.8 FL (78-98); MEAN PLATELET VOLUME 8.5 FL (7.4-10.4); MONOCYTES # (AUTO) 0.4 X10'3 (0-0.9); MONOCYTES % (AUTO) 5.9 % (2-12); NEUTROPHILS # (AUTO) 2.9 X10'3 (1.8-7.7); NEUTROPHILS % (AUTO) 40.6 % (42-75); PLATELET COUNT 173 X10'3 (140-440); RED BLOOD COUNT 4.34 X10'6 (4.20-5.60); RED CELL DISTRIBUTION WIDTH 12.6 % (11.5-14.5); WHITE BLOOD COUNT 7.2 X10'3 (4.5-11.0)
[2019-10-09 03:03] LABS: PARTIAL THROMBOPLASTIN TIME 30 SECONDS (22-32)
[2019-10-09 03:05] LABS: ALANINE AMINOTRANSFERASE 40 U/L (12-78); ALBUMIN/GLOBULIN RATIO 1.1 (1.1-1.5); ALKALINE PHOSPHATASE 102 IU/L (46-116); ANION GAP 8 (8-16); ASPARTATE AMINO TRANSFERASE 38 U/L (10-37); BILIRUBIN,TOTAL 0.5 MG/DL (0.1-1.0); BLOOD UREA NITROGEN 14 MG/DL (7-18); BUN/CREATININE RATIO 22.6 (6.6-38.0); CALCIUM 9.6 MG/DL (8.5-10.1); CHLORIDE 106 MMOL/L (99-107); CREATININE 0.62 MG/DL (0.40-0.90); GLUCOSE 135 MG/DL (70-104); POTASSIUM 3.1 MMOL/L (3.5-5.1); SODIUM 143 MMOL/L (135-145); TOTAL CARBON DIOXIDE 28.7 MMOL/L (24-32); TOTAL PROTEIN 7.8 G/DL (6.4-8.2); eGFR > 90 ML/MIN
[2019-10-09] MEDS ORDERED: nitroGLYCERIN 0.4mg SUBLingual tab SL PRN (03:15)
[2019-10-09] MEDS ORDERED: LORazepam 2 mg/ml vial IV ONE (03:20)
[2019-10-09] MEDS ORDERED: iohexol 350MG/ML 100ml bottle IV ONE (03:28)
[2019-10-09] MEDS ORDERED: normal saline 1000ML IV soln IVB ONE (03:40)
[2019-10-09 04:01] LABS: ETHANOL < 0.010 GM/DL (0.0-0.010)
[2019-10-09 04:53] LABS: URINE AMPHETAMINE SCREEN NEGATIVE (Neg); URINE BARBITUATE SCREEN NEGATIVE (Neg); URINE BENZODIAZEPINES SCREEN NEGATIVE (Neg); URINE CANNABINOID SCREEN NEGATIVE (Neg); URINE COCAINE SCREEN NEGATIVE (Neg); URINE METHADONE SCREEN NEGATIVE (Neg); URINE OPIATE SCREEN POSITIVE (Neg); URINE PHENCYCLIDINE SCREEN NEGATIVE (Neg)
[2019-10-09 05:50] VITALS: BP 125/71
--- NOTE | 2019-10-09 06:03 | NUR ---
0.5 MG ATIVAN WASTED IN MED ROOM AFTER PATIENT REFUSED. 1.5 WASTED PRIOR TO ADMINISTRATION
== END 2019-10-09 05:53 | disposition home or self-care (01) ==
LOC: ER 02:23
DX: R51 Headache (principal); R07.9 Chest pain, unspecified; R20.0 Anesthesia of skin; R06.02 Shortness of breath; R11.0 Nausea; I25.10 Atherosclerotic heart disease of native coronary artery without angina pectoris; I10 Essential (primary) hypertension; I25.2 Old myocardial infarction; E11.9 Type 2 diabetes mellitus without complications; Z86.73 Personal history of transient ischemic attack (TIA), and cerebral infarction without residual deficits; Z86.69 Personal history of other diseases of the nervous system and sense organs; Z86.14 Personal history of Methicillin resistant Staphylococcus aureus infection; Z90.49 Acquired absence of other specified parts of digestive tract; Z98.51 Tubal ligation status; Z98.890 Other specified postprocedural states; Z88.5 Allergy status to narcotic agent; Z79.82 Long term (current) use of aspirin; Z79.899 Other long term (current) drug therapy
CPT/HCPCS: 36415; 70450; 71045; 80053; 80305; 80320; 82948; 84484; 85025; 85610; 85730; 93005; 99285; J7030; Q9967

== ENCOUNTER 2020-02-29 17:33 | Emergency (ER) | payer MEDICAID ==
[~2020-02-29] VITALS: Ht 162.6 cm; Wt 77.3 kg
[2020-02-29] MEDS ORDERED: aspirin 81mg tab.chew PO ONE (17:50)
[2020-02-29] MEDS ORDERED: normal saline 1000ml 1,000 ML IV ONE (17:50)
[2020-02-29] MEDS ORDERED: proCHLORperazine 10 MG/2 ml inj IV ONE ×2 (17:50→19:45)
--- NOTE | 2020-02-29 18:17 | NUR ---
Attempted IV x3, all 3 veins blew. ZARI Boucher, primary nurse aware.
--- NOTE | 2020-02-29 18:32 | NUR ---
pt refused taking baby aspirin she said she" took 324 mg befoer she left the house plus one ealiry in the day . she does not wan to bruise nad irvin not take it . "
--- NOTE | 2020-02-29 18:48 | NUR ---
ATTWMPTED TO START IV X2 STICK . PT SUPER HYPERSENSITIVE TEARFUL . NOT WANTING IV START . EXPLAINED TO PT THAT SHE NEEDS TO HAVE IVF AND BLLOD DRAW AND HAS MEDICATION ORDER FOR TX THAT NEEDS TO BE GIVEN IV . PT REQUESTING ANOTHER STAFF MEMEBR START IV . THIS RECORDER IS THE SECOND STAFF MEMEBER TO ATTEMTP IV START.
--- NOTE | 2020-02-29 19:11 | NUR ---
pt medicated with compazine . taken to ct via wheel chair
[2020-02-29 19:19] LABS: BASOPHILS # (AUTO) 0.1 X10'3 (0-0.2); BASOPHILS % (AUTO) 0.6 % (0-1); EOSINOPHILS # (AUTO) 0.2 X10'3 (0-0.9); EOSINOPHILS % (AUTO) 1.8 % (0-6); HEMATOCRIT 39.6 % (35.0-45.0); HEMOGLOBIN 13.3 g/dl (12.0-16.0); LYMPHOCYTES # (AUTO) 4.2 X10'3 (1.1-4.8); LYMPHOCYTES % (AUTO) 32.6 % (21-51); MEAN CORPUSCULAR HEMOGLOBIN 29.4 PG (27.0-31.0); MEAN CORPUSCULAR HGB CONC 33.5 g/dL (33.0-36.5); MEAN CORPUSCULAR VOLUME 87.6 FL (78-98); MEAN PLATELET VOLUME 8.6 FL (7.4-10.4); MONOCYTES # (AUTO) 0.8 X10'3 (0-0.9); NEUTROPHILS # (AUTO) 7.6 X10'3 (1.8-7.7); PLATELET COUNT 198 X10'3 (140-440); RED BLOOD COUNT 4.52 X10'6 (4.20-5.60); RED CELL DISTRIBUTION WIDTH 12.5 % (11.5-14.5); WHITE BLOOD COUNT 12.9 X10'3 (4.5-11.0)
[2020-02-29 19:33] LABS: ALANINE AMINOTRANSFERASE 55 U/L (12-78); ALBUMIN 3.9 G/DL (3.4-5.0); ALKALINE PHOSPHATASE 116 IU/L (46-116); ANION GAP 8 (8-16); ASPARTATE AMINO TRANSFERASE 29 U/L (10-37); BILIRUBIN,TOTAL 0.4 MG/DL (0.1-1.0); BLOOD UREA NITROGEN 14 MG/DL (7-18); BUN/CREATININE RATIO 20.3 (6.6-38.0); CALCIUM 9.7 MG/DL (8.5-10.1); CHLORIDE 104 MMOL/L (99-107); CREATININE 0.69 MG/DL (0.40-0.90); GLUCOSE 165 MG/DL (70-104); POTASSIUM 3.5 MMOL/L (3.5-5.1); SODIUM 141 MMOL/L (135-145); TOTAL CARBON DIOXIDE 28.6 MMOL/L (24-32); eGFR 88 ML/MIN
--- NOTE | 2020-02-29 19:39 | NUR ---
Ronnie del real in EDM - 02/29/20 at 1941 by MARI SPOKE WITH ABOUT PLAN OF CARE AFTER PATIENT GAVE PERMISSION . PT WILL BE WAITING IN THE CAR FOR HER ELVALUATION
[2020-02-29] MEDS ORDERED: diphenhydrAMINE 50 mg/ml inj IV ONE (19:45)
[2020-02-29] MEDS ORDERED: ketorolac tromethamine 15mg/ml inj. IV ONE (19:45)
[2020-02-29 21:07] VITALS: BP 138/77
== END 2020-02-29 21:07 | disposition home or self-care (01) ==
LOC: ER 17:34
DX: R11.0 Nausea (principal); R51.9 Headache, unspecified; I25.10 Atherosclerotic heart disease of native coronary artery without angina pectoris; I10 Essential (primary) hypertension; E11.9 Type 2 diabetes mellitus without complications; I63.9 Cerebral infarction, unspecified; Z88.5 Allergy status to narcotic agent; Z79.899 Other long term (current) drug therapy; Z79.82 Long term (current) use of aspirin; Z20.828 Contact with and (suspected) exposure to other viral communicable diseases
CPT/HCPCS: 36415; 70450; 71045; 80053; 84484; 85025; 87635; 93005; 96361; 96374; 99285; J0780; J7030

== ENCOUNTER 2021-08-24 08:05 | Emergency (ER) | payer MEDICAID ==
[~2021-08-24] VITALS: Ht 162.6 cm; Wt 79.5 kg
[~2021-08-24 08:05] MED LIST changes: +LOP25T PO; -METO25TA6 PO
[2021-08-24 08:59] LABS: BASOPHILS % (AUTO) 0.4 % (0-1); EOSINOPHILS # (AUTO) 0.4 X10'3 (0-0.9); EOSINOPHILS % (AUTO) 5.9 % (0-6); HEMATOCRIT 38.4 % (35.0-45.0); HEMOGLOBIN 13.2 g/dl (12.0-16.0); LYMPHOCYTES # (AUTO) 2.6 X10'3 (1.1-4.8); MEAN CORPUSCULAR HEMOGLOBIN 28.5 PG (27.0-31.0); MEAN CORPUSCULAR HGB CONC 34.4 g/dL (33.0-36.5); MEAN PLATELET VOLUME 8.1 FL (7.4-10.4); MONOCYTES # (AUTO) 0.5 X10'3 (0-0.9); MONOCYTES % (AUTO) 7.2 % (2-12); NEUTROPHILS # (AUTO) 3.6 X10'3 (1.8-7.7); NEUTROPHILS % (AUTO) 50.5 % (42-75); PLATELET COUNT 192 X10'3 (140-440); RED BLOOD COUNT 4.63 X10'6 (4.20-5.60); RED CELL DISTRIBUTION WIDTH 12.6 % (11.5-14.5); WHITE BLOOD COUNT 7.2 X10'3 (4.5-11.0)
[2021-08-24 09:21] LABS: ALANINE AMINOTRANSFERASE 25 U/L (12-78); ALBUMIN 4.2 G/DL (3.4-5.0); ALBUMIN/GLOBULIN RATIO 1.2 (1.1-1.5); ALKALINE PHOSPHATASE 94 IU/L (46-116); ANION GAP 9 (8-16); ASPARTATE AMINO TRANSFERASE 20 U/L (10-37); BILIRUBIN,TOTAL 0.4 MG/DL (0.1-1.0); BLOOD UREA NITROGEN 20 MG/DL (7-18); BUN/CREATININE RATIO 32.3 (6.6-38.0); CALCIUM 10.1 MG/DL (8.5-10.1); CHLORIDE 105 MMOL/L (99-107); CREATININE 0.62 MG/DL (0.40-0.90); GLUCOSE 113 MG/DL (70-104); POTASSIUM 3.7 MMOL/L (3.5-5.1); SODIUM 144 MMOL/L (135-145); TOTAL CARBON DIOXIDE 29.8 MMOL/L (24-32); TOTAL PROTEIN 7.8 G/DL (6.4-8.2); eGFR > 90 ML/MIN
[2021-08-24] MEDS ORDERED: ondansetron 4mg rapidly disintigrating tab PO ONE (11:00)
[2021-08-24] MEDS ORDERED: famotidine 20mg tablet PO ONE (11:00)
[2021-08-24] MEDS ORDERED: LIDOcaine/epinephrine/tetracaine TOPICAL sol 3 ML syringe TOP ONE (11:05)
[2021-08-24] MEDS ORDERED: ONDA4TAB12 PO (11:29)
[2021-08-24] MEDS ORDERED: LORazepam 1 MG tablet PO ONE (12:40)
[2021-08-24 13:06] VITALS: BP 137/81
== END 2021-08-24 13:10 | disposition home or self-care (01) ==
LOC: ER 08:06
DX: L25.9 Unspecified contact dermatitis, unspecified cause (principal); I11.9 Hypertensive heart disease without heart failure; E11.9 Type 2 diabetes mellitus without complications; Z86.14 Personal history of Methicillin resistant Staphylococcus aureus infection; Z91.030 Bee allergy status; Z88.6 Allergy status to analgesic agent; Z79.899 Other long term (current) drug therapy
CPT/HCPCS: 36415; 71045; 80053; 84484; 85025; 93005; 99285; J3490

== ENCOUNTER 2021-10-31 10:39 | Emergency (ER) | payer MEDICAID ==
[~2021-10-31] VITALS: Ht 162.6 cm; Wt 77.6 kg
[~2021-10-31 10:39] MED LIST changes: +ONDA4TAB12 PO
--- NOTE | 2021-10-31 12:22 | NUR ---
BACK FROM XRAY
[2021-10-31 12:37] LABS: BASOPHILS % (AUTO) 0.4 % (0-1); EOSINOPHILS # (AUTO) 0.3 X10'3 (0-0.9); EOSINOPHILS % (AUTO) 3.6 % (0-6); HEMATOCRIT 38.1 % (35.0-45.0); HEMOGLOBIN 13.1 g/dl (12.0-16.0); LYMPHOCYTES # (AUTO) 2.5 X10'3 (1.1-4.8); LYMPHOCYTES % (AUTO) 33.3 % (21-51); MEAN CORPUSCULAR HEMOGLOBIN 28.5 PG (27.0-31.0); MEAN CORPUSCULAR HGB CONC 34.4 g/dL (33.0-36.5); MEAN PLATELET VOLUME 8.2 FL (7.4-10.4); MONOCYTES # (AUTO) 0.4 X10'3 (0-0.9); MONOCYTES % (AUTO) 5.4 % (2-12); NEUTROPHILS # (AUTO) 4.3 X10'3 (1.8-7.7); NEUTROPHILS % (AUTO) 57.3 % (42-75); PLATELET COUNT 193 X10'3 (140-440); RED BLOOD COUNT 4.58 X10'6 (4.20-5.60); RED CELL DISTRIBUTION WIDTH 12.8 % (11.5-14.5); WHITE BLOOD COUNT 7.5 X10'3 (4.5-11.0)
[2021-10-31 12:50] LABS: D-DIMER 0.25 MG/L FEU (0-0.50)
[2021-10-31 12:53] LABS: ALANINE AMINOTRANSFERASE 23 U/L (12-78); ALBUMIN 4.1 G/DL (3.4-5.0); ALBUMIN/GLOBULIN RATIO 1.2 (1.1-1.5); ALKALINE PHOSPHATASE 76 IU/L (46-116); ANION GAP 5 (8-16); ASPARTATE AMINO TRANSFERASE 24 U/L (10-37); BILIRUBIN,TOTAL 0.4 MG/DL (0.1-1.0); BLOOD UREA NITROGEN 14 MG/DL (7-18); BUN/CREATININE RATIO 23.3 (6.6-38.0); CALCIUM 9.9 MG/DL (8.5-10.1); CHLORIDE 108 MMOL/L (99-107); GLUCOSE 81 MG/DL (70-104); POTASSIUM 4.7 MMOL/L (3.5-5.1); SODIUM 144 MMOL/L (135-145); TOTAL CARBON DIOXIDE 31.4 MMOL/L (24-32); TOTAL PROTEIN 7.6 G/DL (6.4-8.2); eGFR > 90 ML/MIN
[2021-10-31 13:00] VITALS: BP 140/70
[2021-10-31 13:01] LABS: MAGNESIUM 1.8 MG/DL (1.5-2.4)
== END 2021-10-31 13:42 | disposition home or self-care (01) ==
LOC: ER 10:39
DX: S50.01XA Contusion of right elbow, initial encounter (principal); I10 Essential (primary) hypertension; E11.9 Type 2 diabetes mellitus without complications; Z91.030 Bee allergy status; Z90.49 Acquired absence of other specified parts of digestive tract; Z98.51 Tubal ligation status; V87.8XXA Person injured in other specified noncollision transport accidents involving motor vehicle (traffic), initial encounter; Y93.89 Activity, other specified; Y92.89 Other specified places as the place of occurrence of the external cause; Y99.8 Other external cause status
CPT/HCPCS: 36415; 71045; 73080; 80053; 83735; 83880; 84484; 85025; 85379; 93005; 99285

== ENCOUNTER 2021-12-25 00:34 | Emergency (ER) | payer MEDICAID ==
[~2021-12-25] VITALS: Ht 162.6 cm; Wt 81.8 kg
[2021-12-25 00:39] VITALS: BP 169/84
[2021-12-25] MEDS ORDERED: HYDROcodone/acetaminophen 5mg/325mg tablet PO ONE (04:00)
[2021-12-25] MEDS ORDERED: TRAM50TA2 PO (05:20)
== END 2021-12-25 05:44 | disposition home or self-care (01) ==
LOC: ER 00:34
DX: M54.59 Other low back pain (principal); M79.601 Pain in right arm; M25.561 Pain in right knee; M25.562 Pain in left knee; E11.9 Type 2 diabetes mellitus without complications; I11.9 Hypertensive heart disease without heart failure; Z86.14 Personal history of Methicillin resistant Staphylococcus aureus infection; Z79.899 Other long term (current) drug therapy; Z91.030 Bee allergy status; Z88.5 Allergy status to narcotic agent; Z79.82 Long term (current) use of aspirin
CPT/HCPCS: 72131; 99284

== ENCOUNTER 2022-01-07 17:28 | Emergency (ER) | payer MEDICAID ==
[~2022-01-07] VITALS: Ht 162.6 cm; Wt 81.8 kg
[~2022-01-07 17:28] MED LIST changes: +TRAM50TA2 PO
[2022-01-07] MEDS ORDERED: morphine IR (immed. release) 30mg tablet PO PRN (22:50)
[2022-01-08] MEDS ORDERED: ondansetron/PF 4mg/2ml inj IV ONE (03:05)
[2022-01-08] MEDS ORDERED: ondansetron 4mg rapidly disintigrating tab PO ONE (03:15)
[2022-01-08] MEDS ORDERED: LIDOcaine 5% patch TP SCH (04:59)
[2022-01-08 05:16] VITALS: BP 130/70
== END 2022-01-08 05:15 | disposition home or self-care (01) ==
LOC: ER 17:29
DX: G89.29 Other chronic pain (principal); M54.9 Dorsalgia, unspecified; I11.9 Hypertensive heart disease without heart failure; E11.9 Type 2 diabetes mellitus without complications; Z90.49 Acquired absence of other specified parts of digestive tract; Z79.899 Other long term (current) drug therapy; Z86.14 Personal history of Methicillin resistant Staphylococcus aureus infection; Z88.5 Allergy status to narcotic agent; Z88.8 Allergy status to other drugs, medicaments and biological substances; Z91.030 Bee allergy status
CPT/HCPCS: 72100; 72128; 99285

== ENCOUNTER 2022-06-02 19:02 | Emergency (ER) | payer MEDICAID ==
[~2022-06-02] VITALS: Ht 162.6 cm; Wt 81.8 kg
[~2022-06-02 19:02] MED LIST changes: -TRAM50TA2 PO
[2022-06-02 19:39] VITALS: BP 127/94
== END 2022-06-02 22:19 | disposition home or self-care (01) ==
LOC: ER 19:03
DX: M25.561 Pain in right knee (principal); R07.81 Pleurodynia; R11.2 Nausea with vomiting, unspecified; R19.7 Diarrhea, unspecified; I25.10 Atherosclerotic heart disease of native coronary artery without angina pectoris; I10 Essential (primary) hypertension; I25.2 Old myocardial infarction; E11.9 Type 2 diabetes mellitus without complications; M19.90 Unspecified osteoarthritis, unspecified site; Z86.14 Personal history of Methicillin resistant Staphylococcus aureus infection; Z90.49 Acquired absence of other specified parts of digestive tract; Z98.51 Tubal ligation status; Z98.890 Other specified postprocedural states; Z86.73 Personal history of transient ischemic attack (TIA), and cerebral infarction without residual deficits; Z88.5 Allergy status to narcotic agent; Z91.030 Bee allergy status; Z79.82 Long term (current) use of aspirin; Z79.899 Other long term (current) drug therapy
CPT/HCPCS: 71100; 71101; 73560; 99284

== ENCOUNTER 2023-07-19 14:45 | Emergency (ER) | payer MEDICAID ==
[~2023-07-19] VITALS: Ht 157.5 cm; Wt 68.3 kg
[2023-07-19 14:49] VITALS: BP 167/82; PULSE 81; TEMP 98.2; O2SAT 99
[2023-07-19] MEDS ORDERED: LIDO700A47 TOP (15:15)
[2023-07-19] MEDS ORDERED: LIDOcaine 5% patch TP SCH (15:15)
[2023-07-19] MEDS ORDERED: CYCL-394 PO (15:15)
[2023-07-19] MEDS ORDERED: HYDR-3965 PO (15:15)
[2023-07-19] MEDS ORDERED: ONDA8TAB13 PO (15:16)
[2023-07-19 15:31] VITALS: RESP 16
[2023-07-19] MEDS: HYDROcodone/acetaminophen 5mg/325mg tablet PO ONE (15:31)
[2023-07-19] MEDS: ondansetron 4mg rapidly disintigrating tab PO ONE (15:31)
[2023-07-19] MEDS: LIDOcaine 5% patch TP ONE (15:32)
== END 2023-07-19 15:47 | disposition home or self-care (01) ==
LOC: ER 14:45
DX: G89.29 Other chronic pain (principal); M54.50 Low back pain, unspecified; I10 Essential (primary) hypertension; E11.9 Type 2 diabetes mellitus without complications; Z91.030 Bee allergy status; Z88.5 Allergy status to narcotic agent; Z88.6 Allergy status to analgesic agent; Z79.899 Other long term (current) drug therapy; Z79.82 Long term (current) use of aspirin; Z90.49 Acquired absence of other specified parts of digestive tract; Z98.49 Cataract extraction status, unspecified eye
CPT/HCPCS: 99284

== ENCOUNTER 2023-09-28 22:18 | Emergency (ER) | payer MEDICAID ==
[~2023-09-28] VITALS: Ht 162.6 cm; Wt 77.3 kg
[~2023-09-28 22:18] MED LIST changes: +LIDO700A47 TOP; +ONDA8TAB13 PO
[2023-09-28 22:29] VITALS: BP 123/75; PULSE 88; TEMP 98.6; O2SAT 97
[2023-09-29] MEDS ORDERED: HYDR-3965 PO (01:07)
[2023-09-29] MEDS ORDERED: ONDA8TAB13 PO (01:07)
[2023-09-29] MEDS: ketorolac trometh. 30mg/ml inj. IM ONE (01:19)
[2023-09-29] MEDS: ondansetron 4mg rapidly disintigrating tab PO ONE (01:22)
[2023-09-29 01:23] VITALS: RESP 18
[2023-09-29] MEDS: HYDROcodone/acetaminophen 5mg/325mg tablet PO ONE (01:23)
== END 2023-09-29 01:44 | disposition home or self-care (01) ==
LOC: ER 22:19
DX: S29.012A Strain of muscle and tendon of back wall of thorax, initial encounter (principal); I10 Essential (primary) hypertension; E11.9 Type 2 diabetes mellitus without complications; Z91.030 Bee allergy status; Z88.6 Allergy status to analgesic agent; Z79.82 Long term (current) use of aspirin; Z79.899 Other long term (current) drug therapy; Z90.49 Acquired absence of other specified parts of digestive tract; Z98.51 Tubal ligation status; X58.XXXA Exposure to other specified factors, initial encounter; Y93.89 Activity, other specified; Y92.89 Other specified places as the place of occurrence of the external cause; Y99.8 Other external cause status
CPT/HCPCS: 99283

== ENCOUNTER 2023-10-08 12:14 | Inpatient (IN) | payer MEDICAID ==
[~2023-10-08] VITALS: Ht 162.6 cm; Wt 77.2 kg
[~2023-10-08 12:14] MED LIST changes: +HYDR-3965 PO
[2023-10-08 13:04] LABS: BASOPHILS % (AUTO) 0.4 % (0-1); EOSINOPHILS # (AUTO) 0.1 X10'3 (0-0.9); EOSINOPHILS % (AUTO) 1.1 % (0-6); HEMATOCRIT 43.5 % (35.0-45.0); HEMOGLOBIN 14.7 g/dl (12.0-16.0); LYMPHOCYTES # (AUTO) 2.3 X10'3 (1.1-4.8); LYMPHOCYTES % (AUTO) 21.2 % (21-51); MEAN CORPUSCULAR HEMOGLOBIN 29.2 PG (27.0-31.0); MEAN CORPUSCULAR HGB CONC 33.8 g/dL (33.0-36.5); MEAN CORPUSCULAR VOLUME 86.3 FL (78-98); MEAN PLATELET VOLUME 7.9 FL (7.4-10.4); MONOCYTES # (AUTO) 0.6 X10'3 (0-0.9); MONOCYTES % (AUTO) 5.9 % (2-12); NEUTROPHILS # (AUTO) 7.9 X10'3 (1.8-7.7); NEUTROPHILS % (AUTO) 71.4 % (42-75); PLATELET COUNT 250 X10'3 (140-440); RED BLOOD COUNT 5.03 X10'6 (4.20-5.60); RED CELL DISTRIBUTION WIDTH 12.7 % (11.5-14.5)
[2023-10-08 13:15] LABS: ALBUMIN 3.8 G/DL (3.4-5.0); ANION GAP 9 (8-16); BLOOD UREA NITROGEN 12 MG/DL (7-18); BUN/CREATININE RATIO 21.4 (10.0-20.0); CALCIUM 10.1 MG/DL (8.5-10.1); CHLORIDE 106 MMOL/L (99-107); CREATININE 0.56 MG/DL (0.40-0.90); GLUCOSE 184 MG/DL (70-104); POTASSIUM 3.7 MMOL/L (3.5-5.1); SODIUM 141 MMOL/L (135-145); TOTAL CARBON DIOXIDE 25.6 MMOL/L (24-32); eCRCL 91 ML/MIN; eGFR > 90 ML/MIN
[2023-10-08 13:18] LABS: APTT 24 SECONDS (22-32); PROTHROMBIN TIME 10.3 SECONDS (9.0-12.0)
[2023-10-08] MEDS: aspirin 81mg tab.chew PO ONE (13:35)
[2023-10-08] MEDS: HYDROcodone/acetaminophen 10/325mg tab PO ONE (15:40)
[2023-10-08] MEDS ORDERED: iohexol 350MG/ML 100ml bottle IV ONE (16:19)
[2023-10-08] MEDS ORDERED: glucagon, human recombinant 1mg kit SUBCUT PRN (16:25)
[2023-10-08] MEDS ORDERED: dextrose 50%-water 50ml dispensing syringe IV PRN ×2 (16:25)
[2023-10-08] MEDS ORDERED: DEXTROSE 15 GM of carb/4 tabs (each vial/BOTTLE has 4 tablets) PO PRN ×2 (16:25)
[2023-10-08] MEDS: INSULIN LISPRO 100 UNIT/ML INSULN.PEN MULTI-DOSE SQ SCH ×2 (17:00→18:00)
[2023-10-08 17:22] LABS: HEMOGLOBIN A1C 8.4 % (4.5-6.2)
[2023-10-08 18:00] VITALS: BP 167/77; PULSE 71; RESP 16; TEMP 97.2; O2SAT 93
[2023-10-08] MEDS: normal saline 1000ml 1,000 ML IV SCH (19:40)
[2023-10-08 20:00] VITALS: RESP 14; O2SAT 93
[2023-10-08] MEDS ORDERED: acetaminophen 325mg tablet PO PRN (20:10)
[2023-10-08] MEDS: HYDROcodone/acetaminophen 5mg/325mg tablet PO PRN (20:48)
[2023-10-08 22:00] VITALS: BP 134/54; PULSE 57; RESP 15; TEMP 96.8; O2SAT 97
[2023-10-09] VITALS (11 sets, daily range): BP systolic 129–178; BP diastolic 59–98; PULSE 53–75; RESP 12–20; TEMP 97–97.9; O2SAT 91–97
[2023-10-09] MEDS: aspirin 81mg, enteric-coated 1 TAB TABLET.DR PO SCH (08:00)
[2023-10-09] MEDS ORDERED: atorvastatin 20mg tablet PO SCH (08:00)
[2023-10-09 08:01] LABS: BASOPHILS # (AUTO) 0.1 X10'3 (0-0.2); BASOPHILS % (AUTO) 0.5 % (0-1); EOSINOPHILS # (AUTO) 0.1 X10'3 (0-0.9); EOSINOPHILS % (AUTO) 1.2 % (0-6); HEMATOCRIT 40.2 % (35.0-45.0); HEMOGLOBIN 13.8 g/dl (12.0-16.0); LYMPHOCYTES # (AUTO) 3.1 X10'3 (1.1-4.8); MEAN CORPUSCULAR HEMOGLOBIN 29.7 PG (27.0-31.0); MEAN CORPUSCULAR HGB CONC 34.4 g/dL (33.0-36.5); MEAN CORPUSCULAR VOLUME 86.4 FL (78-98); MEAN PLATELET VOLUME 8.2 FL (7.4-10.4); MONOCYTES # (AUTO) 0.6 X10'3 (0-0.9); MONOCYTES % (AUTO) 5.6 % (2-12); NEUTROPHILS # (AUTO) 6.5 X10'3 (1.8-7.7); NEUTROPHILS % (AUTO) 62.7 % (42-75); PLATELET COUNT 241 X10'3 (140-440); RED BLOOD COUNT 4.65 X10'6 (4.20-5.60); RED CELL DISTRIBUTION WIDTH 12.7 % (11.5-14.5); WHITE BLOOD COUNT 10.4 X10'3 (4.5-11.0)
[2023-10-09 08:34] LABS: ALANINE AMINOTRANSFERASE 30 U/L (12-78); ALBUMIN 3.5 G/DL (3.4-5.0); ALKALINE PHOSPHATASE 69 IU/L (46-116); ANION GAP 9 (8-16); ASPARTATE AMINO TRANSFERASE 17 U/L (10-37); BILIRUBIN,TOTAL 0.6 MG/DL (0.1-1.0); BLOOD UREA NITROGEN 10 MG/DL (7-18); BUN/CREATININE RATIO 21.7 (10.0-20.0); CALCIUM 9.8 MG/DL (8.5-10.1); CHLORIDE 105 MMOL/L (99-107); CHOL/HDL RATIO 3.8 (0.00-4.99); CHOLESTEROL 207 MG/DL (0-200); CREATININE 0.46 MG/DL (0.40-0.90); GLUCOSE 114 MG/DL (70-104); HDL CHOLESTEROL 55 MG/DL (35-60); LDL CHOLESTEROL 129 MG/DL (50-100); SODIUM 142 MMOL/L (135-145); TOTAL CARBON DIOXIDE 28.1 MMOL/L (24-32); TOTAL PROTEIN 7.1 G/DL (6.4-8.2); TRIGLYCERIDES 141 MG/DL (20-135); eCRCL 111 ML/MIN; eGFR > 90 ML/MIN
[2023-10-09] MEDS: LIDOcaine 5% patch TP SCH (09:04)
[2023-10-09] MEDS: atorvastatin 20mg tablet PO ONE (09:20)
[2023-10-09] MEDS ORDERED: LIDOcaine 2% Viscous 15ml cup ONE (16:24)
[2023-10-09] MEDS ORDERED: fentaNYL/PF 50MCG/1 ML 2ML syringe ONE (16:28)
[2023-10-09] MEDS ORDERED: MIDAZolam 1 MG/ML 5ML VIAL ONE (16:28)
[2023-10-09] MEDS ORDERED: ATOR40TA71 PO (18:28)
[2023-10-09] MEDS ORDERED: ASPI-1071 PO (18:28)
[2023-10-10] MEDS ORDERED: atorvastatin 20mg tablet PO SCH (08:00)
== END 2023-10-09 20:15 | disposition home or self-care (01) | DRG 47 ==
LOC: ER 12:15 → ED HOLD 16:17 → ORTHO 4S 17:59
PROVIDERS: ADMIT Family Medicine; ATTEND Family Medicine
PROC: B3251ZZ Computerized Tomography (CT Scan) of Bilateral Common Carotid Arteries using Low Osmolar Contrast (ICD-10-PCS; 2023-10-08)
PROC: B32G1ZZ Computerized Tomography (CT Scan) of Bilateral Vertebral Arteries using Low Osmolar Contrast (ICD-10-PCS; 2023-10-08)
PROC: B32R1ZZ Computerized Tomography (CT Scan) of Intracranial Arteries using Low Osmolar Contrast (ICD-10-PCS; 2023-10-08)
PROC: B3281ZZ Computerized Tomography (CT Scan) of Bilateral Internal Carotid Arteries using Low Osmolar Contrast (ICD-10-PCS; 2023-10-08)
PROC: 0DJ08ZZ Inspection of Upper Intestinal Tract, Via Natural or Artificial Opening Endoscopic (ICD-10-PCS; principal; 2023-10-09)
DX: G45.9 Transient cerebral ischemic attack, unspecified (principal); E11.9 Type 2 diabetes mellitus without complications; I10 Essential (primary) hypertension; I25.10 Atherosclerotic heart disease of native coronary artery without angina pectoris; M06.9 Rheumatoid arthritis, unspecified; R13.10 Dysphagia, unspecified; K44.9 Diaphragmatic hernia without obstruction or gangrene; Z96.651 Presence of right artificial knee joint; I25.2 Old myocardial infarction; Z95.5 Presence of coronary angioplasty implant and graft; Z88.8 Allergy status to other drugs, medicaments and biological substances; Z88.5 Allergy status to narcotic agent; Z91.030 Bee allergy status; Z79.899 Other long term (current) drug therapy; Z79.82 Long term (current) use of aspirin; Z90.49 Acquired absence of other specified parts of digestive tract; Z98.51 Tubal ligation status; Z82.49 Family history of ischemic heart disease and other diseases of the circulatory system
CPT/HCPCS: 36415; 43235; 70450; 70551; 71045; 80048; 80053; 80061; 82948; 83036; 84484; 85025; 85610; 85730; 87081; 92508; 92616; 93005; 93306; 97161; 97530; 99152; 99285; A4620; A6258; G0378; J1815; J2250; J3010; J7030; Q9967

== ENCOUNTER 2023-12-11 11:16 | Outpatient (CLI) | payer MEDICAID ==
[~2023-12-11 11:16] MED LIST changes: -ATOR20TA66 PO; +ATOR40TA71 PO; -HYDR-3965 PO; -HYDR-4353 PO; -LOP25T PO; -MULT-933 PO; -ONDA4TAB12 PO; -ONDA4TAB6 PO; -ONDA8TAB13 PO; -TICA90TA PO
== END 2023-12-11 23:59 | disposition home or self-care (01) ==
LOC: MRI 11:16
PROVIDERS: ATTEND Nurse Practitioner Adult Health
DX: M51.17 Intervertebral disc disorders with radiculopathy, lumbosacral region (principal); M47.27 Other spondylosis with radiculopathy, lumbosacral region; M48.061 Spinal stenosis, lumbar region without neurogenic claudication; M43.17 Spondylolisthesis, lumbosacral region; M62.830 Muscle spasm of back; M54.50 Low back pain, unspecified
CPT/HCPCS: 72148